=== PATIENT | male | born 1980 | race Caucasian/White ===

== ENCOUNTER 2022-02-08 12:15 | Inpatient (IN) | payer OTHER ==
[2022-02-08] MEDS ORDERED: LOPERAMIDE HCL 2 MG CAPSULE PO PRN (12:40)
[2022-02-08] MEDS ORDERED: NICOTINE 10 MG CARTRIDGE (INHALER) IH PRN (12:40)
[2022-02-08] MEDS ORDERED: BENZOCAINE/MENTHOL (CHLORASEPTIC ) LOZENGE MM PRN (12:40)
[2022-02-08] MEDS ORDERED: BISMUTH SUBSALICYLATE 262 MG/15 ML BTL PO PRN (12:40)
[2022-02-08] MEDS ORDERED: IBUPROFEN 400 MG TABLET (FP) PO PRN (12:40)
[2022-02-08] MEDS ORDERED: cloNIDine HCL 0.1 MG TABLET PO PRN (12:40)
[2022-02-08] MEDS ORDERED: MAG HYDROX/AL HYDROX/SIMETH 30 ML UNIT-DOSE CUP PO PRN (12:40)
[2022-02-08] MEDS ORDERED: ONDANSETRON *ODT* 4 MG TABLET SL PRN (12:40)
[2022-02-08] MEDS ORDERED: ACETAMINOPHEN 325 MG TABLET (FP) PO PRN ×2 (12:40)
[2022-02-08] MEDS ORDERED: methaDONE HCL 10 MG TABLET (FOR DETOX USE ONLY) PO ONE (12:40)
[2022-02-08] MEDS ORDERED: MAGNESIUM HYDROX 2400MG/30ML ORAL SUSPENSION 30 ML CUP PO PRN (12:40)
[2022-02-08] MEDS ORDERED: MAGNESIUM CITRATE 300 ML BOTTLE PO PRN (12:40)
[2022-02-08 12:55] VITALS: BMI 21.2
[2022-02-08] MEDS: hydrOXYzine PAMOATE 25 MG CAPSULE (FP) PO SCH ×3 (13:43→22:53)
[2022-02-08] MEDS: PRENATAL VITAMINS W/ FOLIC ACID TABLET (FP) PO SCH (13:43)
[2022-02-08] MEDS: METHOCARBAMOL 500 MG TABLET PO PRN ×2 (13:43→22:54)
[2022-02-08] MEDS ORDERED: ALBUTEROL SO4 HFA INHALER IH PRN (16:48)
[2022-02-08] MEDS: MELATONIN 5 MG TABLETS PO SCH (22:53)
[2022-02-08] MEDS: THIAMINE HCL 100 MG TABLET (FP) PO SCH (22:53)
[2022-02-09] MEDS: hydrOXYzine PAMOATE 25 MG CAPSULE (FP) PO SCH ×5 (07:14→22:09)
[2022-02-09] MEDS ORDERED: methaDONE HCL 10 MG TABLET (FOR DETOX USE ONLY) ONE (09:17)
[2022-02-09] MEDS: PRENATAL VITAMINS W/ FOLIC ACID TABLET (FP) PO SCH (10:31)
[2022-02-09] MEDS: METHOCARBAMOL 500 MG TABLET PO PRN (10:33)
[2022-02-09 10:38] LABS: HEMATOCRIT 42.6 % (35.4-49); HEMOGLOBIN 14.3 GM/dL (11.7-16.9); MCH 30.4 pg (25.7-33.7); MCHC 33.6 g/dl (32.0-35.9); MEAN CELL VOLUME 90.5 fl (80-96); MEAN PLT VOLUME 8.7 fl (7.5-11.1); PLATELET COUNT 173 10^3/uL (134-434); RBC 4.71 M/mm3 (4.00-5.60); RDW 14.6 % (11.9-15.9); WHITE BLOOD COUNT 6.1 K/mm3 (4.0-10.0)
[2022-02-09 11:05] LABS: BLOOD UREA NITROGEN 13.4 mg/dL (7-18); CALCIUM 9.1 mg/dL (8.5-10.1)
[2022-02-09 11:06] LABS: ALBUMIN 3.9 g/dl (3.4-5.0)
[2022-02-09 11:10] LABS: BILIRUBIN,TOTAL 0.6 mg/dL (0.2-1); TOT PROT 6.5 g/dl (6.4-8.2)
[2022-02-09 11:34] LABS: CREATININE 0.8 mg/dL (0.55-1.3)
[2022-02-09] MEDS: THIAMINE HCL 100 MG TABLET (FP) PO SCH (22:09)
[2022-02-09] MEDS: MELATONIN 5 MG TABLETS PO SCH (22:10)
[2022-02-10] MEDS: hydrOXYzine PAMOATE 25 MG CAPSULE (FP) PO SCH ×5 (05:34→22:04)
[2022-02-10] MEDS ORDERED: methaDONE HCL 10 MG TABLET (FOR DETOX USE ONLY) PO ONE (10:00)
[2022-02-10] MEDS: PRENATAL VITAMINS W/ FOLIC ACID TABLET (FP) PO SCH (10:35)
[2022-02-10] MEDS ORDERED: BACLOFEN 10 MG TABLET (FP) PO ONE (12:45)
[2022-02-10] MEDS: THIAMINE HCL 100 MG TABLET (FP) PO SCH (22:04)
[2022-02-10] MEDS: MELATONIN 5 MG TABLETS PO SCH (22:04)
[2022-02-10] MEDS: METHOCARBAMOL 500 MG TABLET PO PRN (22:05)
[2022-02-11 00:06] LABS: SARS-CoV-2 NAA Not Detected (Not Detected)
[2022-02-11] MEDS: hydrOXYzine PAMOATE 25 MG CAPSULE (FP) PO SCH ×5 (06:58→22:04)
[2022-02-11] MEDS ORDERED: methaDONE HCL 10 MG TABLET (FOR DETOX USE ONLY) ONE (09:03)
[2022-02-11] MEDS: PRENATAL VITAMINS W/ FOLIC ACID TABLET (FP) PO SCH (10:08)
[2022-02-11] MEDS: METHOCARBAMOL 500 MG TABLET PO PRN ×2 (10:09→22:05)
[2022-02-11] MEDS: MELATONIN 5 MG TABLETS PO SCH (22:04)
[2022-02-11] MEDS: THIAMINE HCL 100 MG TABLET (FP) PO SCH (22:04)
[2022-02-12] MEDS: hydrOXYzine PAMOATE 25 MG CAPSULE (FP) PO SCH ×6 (06:37→22:20)
[2022-02-12] MEDS ORDERED: methaDONE HCL 10 MG TABLET (FOR DETOX USE ONLY) PO ONE (10:00)
[2022-02-12] MEDS: METHOCARBAMOL 500 MG TABLET PO PRN ×2 (10:06→22:19)
[2022-02-12] MEDS: PRENATAL VITAMINS W/ FOLIC ACID TABLET (FP) PO SCH (10:06)
[2022-02-12] MEDS: DICYCLOMINE HCL 10 MG CAPSULE PO PRN (10:08)
[2022-02-12] MEDS: MELATONIN 5 MG TABLETS PO SCH (22:18)
[2022-02-12] MEDS: THIAMINE HCL 100 MG TABLET (FP) PO SCH (22:19)
[2022-02-13] MEDS: hydrOXYzine PAMOATE 25 MG CAPSULE (FP) PO SCH ×2 (06:03→10:30)
[2022-02-13] MEDS: DICYCLOMINE HCL 10 MG CAPSULE PO PRN (06:03)
[2022-02-13 09:54] VITALS: BP 116/61; PULSE 62; TEMP 97.1
[2022-02-13] MEDS: PRENATAL VITAMINS W/ FOLIC ACID TABLET (FP) PO SCH (10:30)
== END 2022-02-13 12:10 | disposition home or self-care (01) | DRG 773 ==
LOC: YASAS 12:15 → Y6N 13:03
PROVIDERS: ADMIT Allergy & Immunology; ATTEND Allergy & Immunology
PROC: HZ2ZZZZ Detoxification Services for Substance Abuse Treatment (ICD-10-PCS; principal; 2022-02-08)
DX: F11.23 Opioid dependence with withdrawal (principal); J45.20 Mild intermittent asthma, uncomplicated; Z87.891 Personal history of nicotine dependence
CPT/HCPCS: 36415; 80053; 85027; 86780; 87811; 93005; 93010; C9803-CS; J0735; U0003; U0005